=== PATIENT | male | born 1960 | race African-American/Black ===

== ENCOUNTER 2019-02-15 17:36 | Emergency (ER) | payer SELFPAY ==
[~2019-02-15] VITALS: Ht 180.3 cm; Wt 99.8 kg
[2019-02-15 17:45] VITALS: BP 147/72
--- NOTE | 2019-02-15 17:45 | NUR ---
ED Nurse Note: Patient ron RA [address] c/o chest pain that has been an on going issue since 1155 AM he states. States that he went from [facility] to [facility], complained of chest pain and was picked up at a bus stop. patient was given 2 nitro sprays and 165 aspirin en route. at time of arrival patient is complaining of no chest pain however now complains of a "bounding headache" patient came with a 20 gauge IV inserted by fire. patient is alert and oriented x4 and walks with a steady gait. will wait for further orders
[2019-02-15] MEDS ORDERED: ATENOLOL25 MG ORAL (17:50)
[2019-02-15] MEDS ORDERED: TRAMADOL HCL50 MG ORAL (17:50)
[2019-02-15 18:08] LABS: ANION GAP 7 mmol/L (5-15); BLOOD UREA NITROGEN 19 mg/dL (7-18); CARBON DIOXIDE 28 MMOL/L (21-32); CHLORIDE 110 MMOL/L (98-107); CREATININE 1.3 MG/DL (0.55-1.30); POTASSIUM 3.2 MMOL/L (3.5-5.1); SODIUM 145 MMOL/L (136-145)
[2019-02-15 18:16] LABS: BASOPHILS % (AUTO) 1.4 % (0.0-2.0); EOSINOPHILS % (AUTO) 3.1 % (0.0-3.0); HEMATOCRIT 37.2 % (42.0-52.0); HEMOGLOBIN 13.3 G/DL (14.2-18.0); LYMPHOCYTES % (AUTO) 29.2 % (20.0-45.0); MEAN CORPUSCULAR VOLUME 84 FL (80-99); MONOCYTES % (AUTO) 8.3 % (1.0-10.0); PLATELET COUNT 320 K/UL (150-450); RED BLOOD COUNT 4.41 M/UL (4.70-6.10); RED CELL DISTRIBUTION WIDTH 11.5 % (11.6-14.8); WHITE BLOOD COUNT 8.3 K/UL (4.8-10.8)
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
[2019-02-15 18:25] LABS: ALANINE AMINOTRANSFERASE 38 U/L (12-78); ALBUMIN 2.9 G/DL (3.4-5.0); ALBUMIN/GLOBULIN RATIO 0.6 (1.0-2.7); ALKALINE PHOSPHATASE 70 U/L (46-116); ASPARTATE AMINO TRANSFERASE 45 U/L (15-37); BILIRUBIN,TOTAL 0.3 MG/DL (0.2-1.0); CKMB 10.9 NG/ML (0.0-3.6); CREATINE KINASE 1419 U/L (26-308)
[2019-02-15] MEDS ORDERED: Isovue-370 150ml vial INJ PRN (19:00)
--- NOTE | 2019-02-15 19:19 | NUR ---
HAND-OFF: Report given to BROOKLYN Barragan.
--- NOTE | 2019-02-15 20:03 | NUR ---
ED Nurse Note: Pt went to CT scan.
[2019-02-15 21:00] VITALS: BP 144/78
--- NOTE | 2019-02-15 21:03 | Diagnostic Imaging Report ---
ndication: Chest pain Technique: IV administration nonionic contrast. Spiral acquisitions obtained from the lung bases to the lung apices. Multiplanar and 3-D reconstructions were generated. Total dose length product 840.8 mGycm. CTDIvol(s) 23.9 mGy. Dose reduction achieved using automated exposure control Comparison: none Findings: . There is considerable image degradation due to motion artifact. This precludes exclusion of small distal emboli. No gross filling defects to suggest large central embolus demonstrated. No evidence of pulmonary arterial dilatation. No right ventricular dilatation. No evidence of thoracic aortic aneurysm or dissection. There is variant branching anatomy of the great neck vessels, with common origin of the right brachiocephalic and left common carotid arteries. Normal caliber of the great neck vessels. The lungs are grossly clear. No infiltrates, effusions, masses, or nodules demonstrated. Note, however, that evaluation of the parenchyma is limited due to the respiratory motion. The heart is upper limits of normal in size. No pericardial effusion. No mediastinal or hilar mass or adenopathy. No axillary or chest wall mass or adenopathy. There are degenerative changes of the thoracic spine. The included upper abdominal viscera are unremarkable. Impression: Limited due to respiratory motion artifact. No gross large vessel pulmonary emboli. Small peripheral emboli is not confidently excludable, however. No evidence of thoracic aortic aneurysm or dissection No definite acute thoracic pathology otherwise. Incidental finding of degenerative thoracic spondylosis. This agrees with the preliminary interpretation provided overnight by [facility] service. The CT scanner at [facility] is accredited by the [employer] and the scans are performed using protocols designed to limit radiation exposure to as low as reasonably achievable to attain images of sufficient resolution adequate for diagnostic evaluation.
--- NOTE | 2019-02-15 21:22 | NUR ---
ED Nurse Note: Pt refused to be DC home, start telling to ERMD and nurses. Security at bedside.
[2019-02-15 21:46] VITALS: BP 144/78
--- NOTE | 2019-02-15 21:46 | NUR ---
ER DISCHARGE NOTE: Patient is cleared to be discharged per ERMD, pt is aox4, on room air, with stable vital signs. pt was given dc and prescription instructions, pt was able to verbalize understanding, pt id band and iv site removed without complications. pt is able to ambulate with steady gait. pt took all belongings. Security escrow Pt out of unit.
--- NOTE | 2019-02-16 11:44 | Cardiology Report ---
APPROVED REPORT EKG Measurement Heart [id number] Normal sinus rhythm Right bundle branch block Left anterior fascicular block Bifascicular block Minimal voltage criteria for LVH, may be normal variant Abnormal ECG
--- NOTE | 2019-02-16 12:53 | Diagnostic Imaging Report ---
Indication: Chest pain Technique: One view of the chest Comparison: none Findings: There is some atelectasis at the right lung base. The lungs and pleural spaces are otherwise clear. The heart is borderline enlarged. Impression: Right basilar atelectasis No acute process otherwise
== END 2019-02-15 21:46 | disposition home or self-care (01) ==
LOC: EDBD 17:36 → EMR 17:57
DX: R07.9 Chest pain, unspecified (principal); I10 Essential (primary) hypertension; E11.9 Type 2 diabetes mellitus without complications; F17.200 Nicotine dependence, unspecified, uncomplicated; Z90.49 Acquired absence of other specified parts of digestive tract; E87.6 Hypokalemia; R79.89 Other specified abnormal findings of blood chemistry; R45.1 Restlessness and agitation
CPT/HCPCS: 36415; 71045; 71275; 80053; 82550; 82553; 83880; 84484; 85025; 93005; 99284; Q9967